=== PATIENT | male | born 1995 | race Caucasian/White ===

== ENCOUNTER 2022-12-25 09:48 | Emergency (ER) | payer OTHER, SELFPAY ==
--- NOTE | ~2022-12-25 | XR_ITS ---
Thoracic spine: Clinical Indication: Back pain AP and lateral views were performed. No fracture is seen. There is normal alignment of the vertebrae. The intervertebral disc spaces appe ar normal. Paravertebral soft tissues appear normal. Impression: No significant abnormalities noted. Reviewed, dictated and finalized at [facility]. Impression: No significant abnormalities noted.
--- NOTE | ~2022-12-25 | XR_ITS ---
Lumbosacral Spine: AP and lateral views Clinical History: Pain Findings: The normal lordotic curve is maintained. The vertebral bodies and posterior elements are i ntact. The intervertebral disc spaces are preserved. The sacroiliac joints are normally outlined. Impression: No significant abnormality. Reviewed, dictated and finalized at [facility]. Impression: No significant abnormality.
[2022-12-25 10:01] VITALS: BP 139/75; PULSE 73; RESP 16; TEMP 36.4; O2SAT 100
--- NOTE | 2022-12-25 12:19 | ED.BACK ---
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 He states since then he has had pain in the middle part of his back, in his neck and also in his low back. There is no radiation of the pain, no saddle anesthesia and no loss of bowel or bladder control. Lying flat and certain movements make the pain worse, resting makes the pain better however [id number] medications have not provided further assistance in relief of his symptoms. He denies any other complaints at this time Related Data Allergies Allergy/AdvReac Type Severity Reaction Status Date / Time No Known Allergies Allergy Verified 12/25/22 11:07 Review of Systems Review of Systems: see HPI All systems reviewed & are unremarkable except as noted in HPI and below Exam Const: General: healthy appearing, no acute distress and alert Nutritional Appearance: well nourished Orientation/consciousness: patient oriented x3 Limitations: no limitations HENMT: Head: normal to inspection Eyes: Conjunctivae: conjunctivae normal Pupils: Equal, round and reactive pupils present EOM: EOMs intact bilaterally Neck: Neck: normal visual inspection and no lymphadenopathy Other: supple range of motion of the neck in all directions. Chest: Chest palpation & inspection: normal inspection of the chest and no tenderness Resp: Effort & Inspection: normal respiratory effort Auscultation: clear to auscultation bilaterally Cardio: Rate: regular rate Rhythm: regular rhythm Heart sounds: no murmurs GI: Inspection: non-distended GI Palp: Yes Soft to palpation, No Tenderness to palpation present (GI) and No Guarding due to palpation present (GI) Auscultation: normal bowel sounds Back/Spine/Pelvis: Back: no CVA tenderness Other: There is midline and Right-sided paraspinal tenderness throughout the thoracic and lumbar spine. No step-off. No palpable spasms. Skin: General skin exam: normal color Rashes: no rashes Wounds: no wounds Neuro: General: patient oriented x3, moves all extremities and no focal motor deficits Speech: normal speech Gait exam (Neuro): Normal gait present Extrem: General: normal to inspection and no pedal edema Psych: Mental Status: mental status grossly normal Affect: normal affect Course Course Emergency Course: imaging was performed of the painful areas and was negative for any acute findings. Patient was medicated and had favorable results. He is stable for discharge at this time and agreeable to plan of care for outpatient treatment. Vital Signs Vital signs: Vital Signs Temperature 97.6 F 12/25/22 10:01 Pulse Rate 73 12/25/22 10:01 Respiratory Rate 16 12/25/22 10:01 Blood Pressure 139/75 12/25/22 10:01 Pulse Oximetry 100 12/25/22 10:01 Temperature 97.6 F 12/25/22 10:01 Pulse Rate 73 12/25/22 10:01 Respiratory Rate 16 12/25/22 10:01 Blood Pressure 139/75 12/25/22 10:01 Pulse Oximetry 100 12/25/22 10:01 MDM - Back Pain/Injury Differential Diagnosis Differential diagnosis: Likely lumbar radiculopathy, sciatica, strain of lumbar region and thoracic back pain Imaging Data Radiologist's impression: Impressions Lumbar Spine X-Ray 12/25/22 12:30 Impression: No significant abnormality. Thoracic Spine X-Ray 12/25/22 12:30 Impression: No significant abnormalities noted. Discharge Plan Discharge Clinical Impression: Strain of lumbar region, Strain of thoracic region Patient Disposition: Home, Self-Care Condition: Stable Instructions: A
[2022-12-25] MEDS: diazePAM INJ (*CRX) 10 MG/2 ML SYRINGE 2 MG IM (12:32)
[2022-12-25] MEDS: KETOROLAC (*BKC) 60 MG/2 ML VIAL IM (12:32)
== END 2022-12-25 13:33 | disposition home or self-care (01) ==
PROVIDERS: Emergency Provider Nurse Practitioner Adult Health; PCP Internal Medicine
DX: S39.012A Strain of muscle, fascia and tendon of lower back, initial encounter (principal); S29.012A Strain of muscle and tendon of back wall of thorax, initial encounter; X50.0XXA Overexertion from strenuous movement or load, initial encounter
CPT/HCPCS: 72070; 72100; 96372; 99284; J1885; J3360